=== PATIENT | female | born 1950 | race Two or more races ===

== ENCOUNTER 2018-10-24 16:00 | Emergency (ER) | payer OTHER ==
[~2018-10-24] VITALS: Ht 152.4 cm; Wt 94.8 kg
[~2018-10-24 16:00] MED LIST: ATACAND 32 MG PO; ATACAND32 MG; ATARAX25 MG PO; LoPRESSOR 50MG TAB PO; Prednisone PO; SYNTHROID112 MCG; SYNTHROID112 MCG PO; Synthroid 112MCG TABLET PO; TOPROL XL50 M1; ZYRTEC10 M3 PO
== END 2018-10-24 23:28 | disposition home or self-care (01) ==
LOC: ER 16:00
DX: A08.8 Other specified intestinal infections (principal); E86.0 Dehydration

== ENCOUNTER 2018-11-04 13:27 | Inpatient (IN) | payer OTHER ==
[~2018-11-04] VITALS: Ht 152.4 cm; Wt 94.8 kg
[2018-11-04] MEDS ORDERED: AVAPRO150 MG PO (13:35)
[2018-11-04] MEDS ORDERED: TOVIAZ8 MG PO (13:35)
[2018-11-04] MEDS ORDERED: ZETIA10 MG PO (13:36)
[2018-11-04] MEDS ORDERED: PROTONIX40 MG PO (13:36)
[2018-11-04] MEDS ORDERED: ZANTAC300 MG PO (13:36)
--- NOTE | 2018-11-04 13:37 | NUR ---
SE RECIBE PTE ALERTA Y ORIENTADA X3, PTE REFIERE VENIR POR DOLOR ABDOMINAL DESDE HACE 1 SEMANA.
--- NOTE | 2018-11-04 14:01 | NUR ---
SE ORIENTA A PTE SOBRE PROCESO DE RICK DE MUESTRAS Y ESTUDIOS A REALIZAR PTE REFIERE ENTENDER INF MAGALY POR RN DE MRAGARETO.
[2018-11-08] MEDS ORDERED: INVANZ1 GM IV (07:38)
== END 2018-11-08 14:59 | disposition home or self-care (01) | DRG 392 ==
LOC: ER 13:27 → SURH 21:55
PROVIDERS: ADMIT Internal Medicine
PROC: BW21ZZZ Computerized Tomography (CT Scan) of Abdomen and Pelvis (ICD-10-PCS; principal; 2018-11-04)
DX: K57.32 Diverticulitis of large intestine without perforation or abscess without bleeding (principal); E27.3 Drug-induced adrenocortical insufficiency; Z88.2 Allergy status to sulfonamides; I10 Essential (primary) hypertension; E03.8 Other specified hypothyroidism; E66.01 Morbid (severe) obesity due to excess calories; Z68.30 Body mass index [BMI] 30.0-30.9, adult; E86.0 Dehydration; E87.8 Other disorders of electrolyte and fluid balance, not elsewhere classified; A05.9 Bacterial foodborne intoxication, unspecified; J31.0 Chronic rhinitis; E22.0 Acromegaly and pituitary gigantism; N20.0 Calculus of kidney

== ENCOUNTER → 2019-03-20 10:48 | Outpatient (CLI) | payer OTHER ==
[~2019-03-20 10:48] MED LIST changes: +AVAPRO150 MG PO; +INVANZ1 GM IV; +PROTONIX40 MG PO; +TOVIAZ8 MG PO; +ZANTAC300 MG PO; +ZETIA10 MG PO
== END | disposition home or self-care (01) ==
LOC: LAB 10:48
DX: K57.32 Diverticulitis of large intestine without perforation or abscess without bleeding (principal); E03.8 Other specified hypothyroidism; N39.0 Urinary tract infection, site not specified

== ENCOUNTER 2019-03-21 12:24 | Outpatient (CLI) | payer OTHER | END 2019-03-21 17:56 | disposition home or self-care (01) | LOC: LAB 12:24 | DX: K57.92 Diverticulitis of intestine, part unspecified, without perforation or abscess without bleeding (principal); N39.0 Urinary tract infection, site not specified; E03.8 Other specified hypothyroidism ==

== ENCOUNTER 2023-06-27 12:54 | Outpatient (CLI) | payer OTHER ==
[2023-06-27 13:49] LABS: HEMATOCRIT 38.8 % (36.0-45.00); HEMOGLOBIN 12.9 g/dL (12.0-15.00); MEAN CELL VOLUME 83.7 fL (80.00-100.00); MEAN CORPUSCULAR HEMOGLOBIN 27.9 pg (27.00-32.0); MEAN CORPUSCULAR HGB CONC 33.4 g/dl (32.0-36.0); PLATELET COUNT 247 K/uL (150-450); RED BLOOD COUNT 4.63 M/uL (4.00-6.00); RED CELL DISTRIBUTION WIDTH 15.4 % (11.5-14.5)
[2023-06-27 13:56] LABS: PH,URINE 5.5 (5.0-8.0); URINE APPEARANCE Cloudy; URINE BACTERIA 9040.4 uL (0.0-1933); URINE BILIRRUBIN Negative (NEGATIVE); URINE BLOOD Negative; URINE COLOR Yellow; URINE GLUCOSE Negative (NEGATIVE); URINE LEUKOCYTE Negative; URINE NITRATE Negative; URINE PROTEIN Trace (NEGATIVE); URINE RBC 14.9 uL (0.0-20.8); URINE UROBILINOGEN 0.2 E.U./dl; URINE WBC 7.7 uL (0.0-23.2)
[2023-06-27 13:58] LABS: URINE EPITHELIAL CELLS > 201.7 uL (0.0-38.8)
== END 2023-06-27 12:58 | disposition home or self-care (01) ==
LOC: LAB 12:54
DX: R50.9 Fever, unspecified (principal); R05.8 Other specified cough; N39.9 Disorder of urinary system, unspecified

== ENCOUNTER 2025-06-13 08:02 | Outpatient (CLI) | payer OTHER | END 2025-06-13 08:04 | disposition home or self-care (01) | LOC: RAD 08:02 | PROVIDERS: ATTEND Physical Medicine & Rehabilitation Hospice and Palliative Medicine | DX: M94.0 Chondrocostal junction syndrome [Tietze] (principal); M54.6 Pain in thoracic spine; R22.2 Localized swelling, mass and lump, trunk ==